=== PATIENT | male | born 1965 | race Caucasian/White ===

== ENCOUNTER 2017-01-24 06:58 | Day surgery (SDC) | payer OTHER ==
[2017-01-24] MEDS ORDERED: Lactated Ringers 1,000 ML IV SCH (07:30)
[2017-01-24] MEDS ORDERED: Propofol 200 MG/20 ML SDV IV ONE (08:00)
[2017-01-24] MEDS ORDERED: Lidocaine 2% 100 MG/5 ML Syringe IVPUSH ONE (08:00)
[2017-01-24] MEDS ORDERED: Midazolam 1 MG/ML 2 ML SDV IV ONE (08:00)
[2017-01-24] MEDS ORDERED: fentaNYL 100 MCG/2 ML SDV IV ONE (08:00)
[2017-01-24] MEDS ORDERED: Ondansetron 4 MG/2 ML SDV IVPUSH ONE (08:00)
[2017-01-24] MEDS ORDERED: Ketamine 500 mg/10 ML MDV IV ONE (08:00)
[2017-01-24] MEDS ORDERED: Lidocaine 1% with EPINEPHrine 1:100,000 20 ML MDV INFILT ONE (08:40)
[2017-01-24] MEDS ORDERED: Bupivacaine 0.5% 30 ML SDV INFILT ONE (08:40)
--- NOTE | 2017-01-24 09:03 | PCM.HPR ---
H & P Addendum review - H & P Addendum Review Date of Original H & P: 01/22/17 Date Reviewed: 01/24/17 Time Reviewed: 08:00 Patient was examined: No Changes
--- NOTE | 2017-01-24 09:05 | PCM.OPNOTE ---
- General Post-Op/Procedure Note Date of Surgery/Procedure: 01/24/17 Operative Procedure(s): Colonoscopy. Hemorrhoidectomy Pre Op Diagnosis: Hematochezia, Hemorrhoid, Colon screening Post-Op Diagnosis: Same Anesthesia Technique: Local, MAC Primary Surgeon: Fidel Maloney Pathology: Hemorrhoid EBL in mLs: 5 Complications: None Condition: Good
[2017-01-24] MEDS ORDERED: Acetaminophen/HYDROcodone 325-5 MG Tab PO PRN (09:07)
[2017-01-24 10:19] VITALS: BP 128/86
--- NOTE | 2017-01-24 12:46 | OR ---
DATE OF OPERATION: 01/24/2017 SURGEON: Fidel Maloney MD PREOPERATIVE DIAGNOSES: 1. Hematochezia. 2. Hemorrhoids. 3. Need for colon screening. POSTOPERATIVE DIAGNOSES: 1. Sigmoid diverticulosis. 2. Hemorrhoid. PROCEDURES: 1. Colonoscopy. 2. Hemorrhoidectomy. ANESTHESIA: Local with IV sedation. PROCEDURE IN DETAIL: The patient was brought to the operating room, where he was placed on his left side and IV sedation administered. Digital rectal exam was performed, which revealed a large prolapsing hemorrhoid originating from the right anterior position. A colonoscope was inserted and advanced to the level of the cecum without difficulty. Cecal position was confirmed by identifying the appendiceal lumen and ileocecal valve. Prep was good and surfaces were well visualized. Upon withdrawing the scope, the ascending, transverse, and descending colon were normal in appearance. The sigmoid colon had a few diverticula present. Rectum was normal and retroflexion was normal, other then revealing the one enlarged internal hemorrhoid. Air was removed and the scope withdrawn. The patient tolerated this portion of the procedure well. The patient was then rolled onto the operating room in the right lateral position. The buttocks were sprayed with benzoin and retracted with tape. Betadine prep was performed. A 50:50 mixture of 1% lidocaine with epinephrine and 0.25% Marcaine was infiltrated around the hemorrhoid on the right side. An operating anoscope was inserted and the hemorrhoid ligated at its base with 3-0 Vicryl. The hemorrhoid was sharply excised and closed with a running locking 3-0 Vicryl. There was some minimal oozing from the suture line, which was reinforced with 3-0 Vicryl. Surgical site was observed for few minutes and remained hemostatic. A bulky sterile pressure dressing was applied. The patient tolerated procedure well. Estimated blood loss was 5 mL. He returned to postanesthesia in stable condition. I will follow up with the patient in [place] next week. I would recommend he undergo a routine colon screening again in 5 years. /[id number] DAVID/LEE LUNDBERG
== END 2017-01-24 10:41 | disposition home or self-care (01) ==
LOC: FB.SDS 06:58
PROVIDERS: ATTEND Surgery
PROC: 06LY4CC Occlusion of Hemorrhoidal Plexus with Extraluminal Device, Percutaneous Endoscopic Approach (ICD-10-PCS; principal; 2017-01-24)
DX: K92.1 Melena (principal); K64.8 Other hemorrhoids; I10 Essential (primary) hypertension; K21.9 Gastro-esophageal reflux disease without esophagitis; G47.30 Sleep apnea, unspecified; K57.30 Diverticulosis of large intestine without perforation or abscess without bleeding
CPT/HCPCS: 45398; 88304; J2250; J2405; J2704; J3010; J7120